=== PATIENT | male | born 1955 | race Caucasian/White ===

== ENCOUNTER 2019-09-23 08:46 | Inpatient (IN) | payer OTHER ==
[2019-09-23] VITALS (13 sets, daily range): BP systolic 101–130
[~2019-09-23] VITALS: Ht 170.2 cm; Wt 129.7 kg
[~2019-09-23 08:46] MED LIST: ALBU2.5V7 INH; ALBU8.5H8 INH; ALLO100T PO; ALPR0.25 PO; CITA40TA11 PO; FURO40TA5 PO; GABA600T PO; LEVO25TA11 PO; LOSA25TA3 PO; NPH,100V SUBCUT; OXYC-133 PO; SSNOVOLOG SUBCUT; TAMS-11 PO; TRAZ-219 PO; ZOLP10TA2 PO; [UNRECOGNIZED DRUG - CODE] PO
[2019-09-23] MEDS ORDERED: NACL 0.9% 1,000 ML IV ONE (08:54)
[2019-09-23] MEDS ORDERED: NS 1000 ML IV.SOLN IV ONE (09:00)
[2019-09-23 09:18] LABS: BASOPHILS % (AUTO) 0.2 % (0.0-2.0); HEMATOCRIT 39.3 % (36-54); HEMOGLOBIN 12.8 g/dL (14.0-18.0); LYMPHOCYTES # (AUTO) 0.3 K/uL (1.0-5.5); LYMPHOCYTES % (AUTO) 1.6 % (20.5-51.5); MEAN CORPUSCULAR HEMOGLOBIN 29 pg (27-31); MEAN CORPUSCULAR HGB CONC 33 % (32-36); MEAN CORPUSCULAR VOLUME 91 fL (79.0-98.0); MONOCYTES % (AUTO) 4.5 % (1.7-9.3); NEUTROPHILS # (AUTO) 20.1 K/uL (1.8-7.7); NEUTROPHILS % (AUTO) 93.7 % (40.0-70.0); PLATELET COUNT (AUTO) 199 K/uL (130-430); RED BLOOD CELL COUNT(AUTO) 4.33 MIL/uL (4.2-6.2); RED CELL DISTRIBUTION WIDTH 17.1 % (9.0-15.0); WHITE BLOOD COUNT (AUTO) 21.5 K/uL (4.8-10.8)
[2019-09-23] MEDS ORDERED: ALBUTEROL SULFATE 0.083% 2.5 MG/3 ML VIAL.NEB INH ONE (09:30)
[2019-09-23] MEDS ORDERED: IPRATROPIUM BROM 0.5 MG/2.5 ML VIAL.NEB (ATROVENT) INH ONE (09:30)
[2019-09-23] MEDS ORDERED: methylPREDNISolone SOD SUCC/PF 62.5 MG/ML VIAL IVP ONE (09:30)
[2019-09-23 09:32] LABS: ANION GAP 9 (5-15); CALCIUM 7.2 mg/dL (8.4-11.0); CHLORIDE 97 mmol/L (98-107); CREATININE 3.55 mg/dL (0.55-1.30); GLUCOSE 251 mg/dL (70-99); POTASSIUM 4.9 mmol/L (3.5-5.1); SODIUM SERUM 134 mmol/L (136-145); UREA NITROGEN, BLOOD 52 mg/dL (8-21)
[2019-09-23 09:34] LABS: INR 1.1 (0.80-1.20)
[2019-09-23 09:35] LABS: GFR AFRICAN AMERICAN 22 mL/min (>90)
[2019-09-23 09:38] LABS: ALANINE AMINOTRANSFERASE 60 U/L (12-78); ALBUMIN 3.2 g/dL (3.4-4.8); AMYLASE 585 U/L (0-100); ASPARTATE AMINOTRANSFERASE 58 U/L (10-37); LIPASE 98 U/L (73-393); TOTAL BILIRUBIN 2.8 mg/dL (0.0-1.0)
[2019-09-23 09:40] LABS: ALCOHOL, BLOOD < 3 mg/dL (<10)
[2019-09-23] MEDS ORDERED: VANCOMYCIN HCL 750 MG in NS 250 ML IV ONE (10:15)
[2019-09-23] MEDS ORDERED: PIPERACILLIN/TAZO 4.5 GM in NS 100 ML IV ONE (10:15)
[2019-09-23] MEDS ORDERED: PIPERACILLIN/TAZOBACTAM 4.5 GM/VIAL (ZOSYN) IV ONE (10:29)
[2019-09-23] MEDS ORDERED: VANCOMYCIN HCL 1000 MG/VIAL IV ONE (10:29)
[2019-09-23] MEDS ORDERED: LACTULOSE 20 GM/30 ML UDC PO ONE (10:30)
[2019-09-23] MEDS ORDERED: MORP30TA PO (11:22)
[2019-09-23 11:26] LABS: BILIRUBIN,URINE NEGATIVE (NEGATIVE); COLOR,URINE YELLOW (YELLOW); GLUCOSE,URINE NEGATIVE (NEGATIVE); KETONES,URINE NEGATIVE (NEGATIVE); LEUKOCYTE ESTERASE ,URINE NEGATIVE (NEGATIVE); NITRITE, URINE NEGATIVE (NEGATIVE); PH,URINE 5.5 (5.0-8.0); PROTEIN URINE NEGATIVE (NEGATIVE); UROBILINOGEN,URINE 0.2 (0.2-1.0)
[2019-09-23 11:29] LABS: BLOOD, URINE TRACE (NEGATIVE); CLARITY/URINE SLIGHTLY HAZY (CLEAR)
[2019-09-23 11:48] LABS: BACTERIA,URINE FEW /HPF (None Seen); MUCUS,URINE 1+ /LPF (None Seen); RBC,URINE 0-3 /HPF (0-3); WBC,URINE NONE SEEN /HPF (0-3)
[2019-09-23 12:18] LABS: BARBITURATE, URINE NEGATIVE (NEG <=200); BENZODIAZEPINE, URINE POSITIVE (NEG <=150); CANNABINOID, URINE NEGATIVE (NEG <=50); COCAINE, URINE NEGATIVE (NEG <=150); METHAMPHETAMINES SCREEN,URINE NEGATIVE (NEG <=500); OPIATE, URINE POSITIVE (NEG <=100); PHENCYCLIDINE SCREEN,URINE NEGATIVE (NEG <=25); URINE AMPHETAMINE NEGATIVE (NEG <=500); URINE METHADONE NEGATIVE (NEG <=200); URINE OXYCODONE SCREEN POSITIVE (NEG <=100); URINE PROPOXYPHENE SCREEN NEGATIVE (NEG <=300)
[2019-09-23 12:19] LABS: UR TRICYCLIC ANTIDEPRESSANTS NEGATIVE (NEG <=300)
[2019-09-23] MEDS: D5/0.45 NS 1,000 ML IV SCH ×2 (13:22→21:08)
[2019-09-23] MEDS ORDERED: FUROSEMIDE 40 MG/4 ML VIAL IVP ONE (14:45)
[2019-09-23] MEDS ORDERED: NALOXONE HCL 0.4 MG/ML AMP (NARCAN) IVP ONE (16:00)
[2019-09-23] MEDS ORDERED: HEPARIN SODIUM,PORCINE 5000 UNITS/ML VIAL SUBCUT ONE ×2 (21:00)
[2019-09-23] MEDS ORDERED: HEPARIN SODIUM,PORCINE 5000 UNITS/ML VIAL ONE (21:05)
[2019-09-24] VITALS (24 sets, daily range): BP systolic 98–143
[2019-09-24] MEDS ORDERED: LORazepam 2 MG/ML VIAL IVP PRN
[2019-09-24] MEDS ORDERED: ALBUTEROL SULFATE 0.083% 2.5 MG/3 ML VIAL.NEB INH PRN
[2019-09-24] MEDS ORDERED: MORPHINE 4 MG/ML INJ. SYRINGE IVP PRN
[2019-09-24] MEDS: INSULIN REGULAR, HUMAN 100 UNITS/ML, 10 ML VIAL (humuLIN R) SUBCUT PRN ×5 (01:30→23:33)
[2019-09-24 06:10] LABS: BASOPHILS % (AUTO) 0.1 % (0.0-2.0); HEMATOCRIT 35.5 % (36-54); HEMOGLOBIN 11.6 g/dL (14.0-18.0); LYMPHOCYTES # (AUTO) 0.6 K/uL (1.0-5.5); LYMPHOCYTES % (AUTO) 3.3 % (20.5-51.5); MEAN CORPUSCULAR HEMOGLOBIN 29 pg (27-31); MEAN CORPUSCULAR HGB CONC 33 % (32-36); MEAN CORPUSCULAR VOLUME 91 fL (79.0-98.0); MONOCYTES # (AUTO) 0.5 K/uL (0.0-1.0); MONOCYTES % (AUTO) 3.2 % (1.7-9.3); NEUTROPHILS # (AUTO) 15.7 K/uL (1.8-7.7); NEUTROPHILS % (AUTO) 93.4 % (40.0-70.0); PLATELET COUNT (AUTO) 163 K/uL (130-430); RED BLOOD CELL COUNT(AUTO) 3.93 MIL/uL (4.2-6.2); RED CELL DISTRIBUTION WIDTH 17.1 % (9.0-15.0); WHITE BLOOD COUNT (AUTO) 16.9 K/uL (4.8-10.8)
[2019-09-24 06:20] LABS: ALBUMIN 2.7 g/dL (3.4-4.8); CALCIUM 7.5 mg/dL (8.4-11.0); CREATININE 1.72 mg/dL (0.55-1.30); PHOSPHORUS 2.9 mg/dL (2.7-4.5); POTASSIUM 3.3 mmol/L (3.5-5.1)
[2019-09-24] MEDS: D5/0.45 NS 1,000 ML IV SCH ×2 (06:35→18:02)
[2019-09-24] MEDS: INSULIN NPH 100 UNITS/ML 10 ML VIAL SUBCUT SCH ×3 (06:53→21:05)
[2019-09-24 07:13] LABS: ERYTHROCYTE SEDIMENTATION RATE 38 MM/HR (0-15)
[2019-09-24 07:18] LABS: C-REACTIVE PROTEIN QUANT 19.7 mg/dL (0-0.5)
[2019-09-24] MEDS ORDERED: PIPERACILLIN/TAZO 3.375/DEX-IS 50 ML IV ONE (10:30)
[2019-09-24] MEDS: PIPERACILLIN/TAZO 3.375/DEX-IS 50 ML IV SCH ×2 (18:03→23:13)
[2019-09-25] VITALS (19 sets, daily range): BP systolic 113–164
[2019-09-25] MEDS: ONDANSETRON HCL 4 MG/2 ML VIAL IVP PRN ×2 (00:21→08:37)
[2019-09-25] MEDS: PIPERACILLIN/TAZO 3.375/DEX-IS 50 ML IV SCH ×3 (05:51→17:18)
[2019-09-25 06:13] LABS: BASOPHILS % (AUTO) 0.2 % (0.0-2.0); EOSINOPHILS % (AUTO) 0.4 % (0.0-4.0); HEMATOCRIT 34.3 % (36-54); HEMOGLOBIN 11.3 g/dL (14.0-18.0); LYMPHOCYTES # (AUTO) 1.3 K/uL (1.0-5.5); LYMPHOCYTES % (AUTO) 10.1 % (20.5-51.5); MEAN CORPUSCULAR HEMOGLOBIN 29 pg (27-31); MEAN CORPUSCULAR HGB CONC 33 % (32-36); MONOCYTES # (AUTO) 0.8 K/uL (0.0-1.0); MONOCYTES % (AUTO) 5.9 % (1.7-9.3); NEUTROPHILS # (AUTO) 10.7 K/uL (1.8-7.7); NEUTROPHILS % (AUTO) 83.4 % (40.0-70.0); PLATELET COUNT (AUTO) 206 K/uL (130-430); RED BLOOD CELL COUNT(AUTO) 3.85 MIL/uL (4.2-6.2); RED CELL DISTRIBUTION WIDTH 17.4 % (9.0-15.0); WHITE BLOOD COUNT (AUTO) 12.8 K/uL (4.8-10.8)
[2019-09-25 06:19] LABS: MEAN CORPUSCULAR VOLUME 89 fL (79.0-98.0)
[2019-09-25 06:39] LABS: ALBUMIN 2.7 g/dL (3.4-4.8); CALCIUM 8.3 mg/dL (8.4-11.0); CREATININE 1.11 mg/dL (0.55-1.30); TOTAL BILIRUBIN 0.8 mg/dL (0.0-1.0)
[2019-09-25] MEDS: INSULIN NPH 100 UNITS/ML 10 ML VIAL SUBCUT SCH ×3 (07:00→21:43)
[2019-09-25 07:12] LABS: POTASSIUM 2.9 mmol/L (3.5-5.1)
[2019-09-25 08:07] LABS: HEPATITIS A AB, IgM Negative (Negative); HEPATITIS B CORE AB, IgM Negative (Negative); HEPATITIS B SURFACE AG Negative (Negative)
[2019-09-25] MEDS: D5/0.45 NS 1,000 ML IV SCH (08:37)
[2019-09-25] MEDS ORDERED: POTASSIUM CHLORIDE 40 MEQ in NS 250 ML IV ONE (09:45)
[2019-09-25] MEDS: 0.45% NACL 1,000 ML IV SCH (10:13)
[2019-09-25] MEDS: HYDROcodone/ACETAMIN 7.5-325 MG TAB PO PRN ×2 (10:14→22:28)
[2019-09-25] MEDS: LORazepam 2 MG/ML VIAL IVP PRN (20:08)
[2019-09-26] MEDS: PIPERACILLIN/TAZO 3.375/DEX-IS 50 ML IV SCH ×5 (00:16→23:23)
[2019-09-26] MEDS: INSULIN REGULAR, HUMAN 100 UNITS/ML, 10 ML VIAL (humuLIN R) SUBCUT PRN ×3 (00:23→17:23)
[2019-09-26 00:32] VITALS: BP_SYST 133
[2019-09-26] MEDS: MORPHINE 2 MG/ML INJ. SYRINGE IVP PRN ×5 (02:47→21:10)
[2019-09-26] MEDS: 0.45% NACL 1,000 ML IV SCH (06:06)
[2019-09-26] MEDS: INSULIN NPH 100 UNITS/ML 10 ML VIAL SUBCUT SCH ×3 (07:25→21:16)
[2019-09-26 08:00] VITALS: BP_SYST 124
[2019-09-26 08:18] LABS: BASOPHILS % (AUTO) 0.5 % (0.0-2.0); EOSINOPHILS # (AUTO) 0.1 K/uL (0.0-0.4); EOSINOPHILS % (AUTO) 1.1 % (0.0-4.0); HEMATOCRIT 34.5 % (36-54); HEMOGLOBIN 11.6 g/dL (14.0-18.0); LYMPHOCYTES # (AUTO) 1.4 K/uL (1.0-5.5); LYMPHOCYTES % (AUTO) 14.2 % (20.5-51.5); MEAN CORPUSCULAR HEMOGLOBIN 30 pg (27-31); MEAN CORPUSCULAR HGB CONC 34 % (32-36); MEAN CORPUSCULAR VOLUME 89 fL (79.0-98.0); MONOCYTES # (AUTO) 0.7 K/uL (0.0-1.0); MONOCYTES % (AUTO) 6.8 % (1.7-9.3); NEUTROPHILS # (AUTO) 7.6 K/uL (1.8-7.7); NEUTROPHILS % (AUTO) 77.4 % (40.0-70.0); PLATELET COUNT (AUTO) 191 K/uL (130-430); RED BLOOD CELL COUNT(AUTO) 3.89 MIL/uL (4.2-6.2); RED CELL DISTRIBUTION WIDTH 17.1 % (9.0-15.0); WHITE BLOOD COUNT (AUTO) 9.9 K/uL (4.8-10.8)
[2019-09-26 09:21] LABS: ALBUMIN 2.6 g/dL (3.4-4.8); CALCIUM 8.5 mg/dL (8.4-11.0); CREATININE 1.02 mg/dL (0.55-1.30); TOTAL BILIRUBIN 0.9 mg/dL (0.0-1.0)
[2019-09-26] MEDS ORDERED: POTASSIUM CHLORIDE 20 MEQ TAB.PRT.SR PO ONE (10:00)
[2019-09-26 12:00] VITALS: BP_SYST 145
[2019-09-26] MEDS: HYDROcodone/ACETAMIN 7.5-325 MG TAB PO PRN ×3 (14:58→23:26)
[2019-09-26 16:55] VITALS: BP_SYST 174
[2019-09-26 20:00] VITALS: BP_SYST 159
[2019-09-27] VITALS: BP_SYST 173
[2019-09-27] MEDS: MORPHINE 2 MG/ML INJ. SYRINGE IVP PRN ×4 (01:26→14:29)
[2019-09-27] MEDS: LORazepam 2 MG/ML VIAL IVP PRN ×2 (02:23→11:29)
[2019-09-27] MEDS: INSULIN NPH 100 UNITS/ML 10 ML VIAL SUBCUT SCH (05:55)
[2019-09-27] MEDS: PIPERACILLIN/TAZO 3.375/DEX-IS 50 ML IV SCH ×2 (05:55→11:43)
[2019-09-27 06:30] LABS: BASOPHILS # (AUTO) 0.1 K/uL (0.0-0.2); BASOPHILS % (AUTO) 0.6 % (0.0-2.0); EOSINOPHILS # (AUTO) 0.1 K/uL (0.0-0.4); EOSINOPHILS % (AUTO) 1.2 % (0.0-4.0); HEMATOCRIT 37.8 % (36-54); HEMOGLOBIN 12.8 g/dL (14.0-18.0); LYMPHOCYTES # (AUTO) 1.3 K/uL (1.0-5.5); LYMPHOCYTES % (AUTO) 14.4 % (20.5-51.5); MEAN CORPUSCULAR HEMOGLOBIN 30 pg (27-31); MEAN CORPUSCULAR HGB CONC 34 % (32-36); MEAN CORPUSCULAR VOLUME 87 fL (79.0-98.0); MONOCYTES # (AUTO) 0.7 K/uL (0.0-1.0); MONOCYTES % (AUTO) 7.6 % (1.7-9.3); NEUTROPHILS # (AUTO) 7.1 K/uL (1.8-7.7); NEUTROPHILS % (AUTO) 76.2 % (40.0-70.0); PLATELET COUNT (AUTO) 203 K/uL (130-430); RED BLOOD CELL COUNT(AUTO) 4.33 MIL/uL (4.2-6.2); RED CELL DISTRIBUTION WIDTH 17.2 % (9.0-15.0); WHITE BLOOD COUNT (AUTO) 9.3 K/uL (4.8-10.8)
[2019-09-27 07:07] LABS: C-REACTIVE PROTEIN QUANT 1.4 mg/dL (0-0.5); CALCIUM 8.5 mg/dL (8.4-11.0); CREATININE 1.01 mg/dL (0.55-1.30); PHOSPHORUS 3.3 mg/dL (2.7-4.5)
[2019-09-27 08:00] VITALS: BP_SYST 152
[2019-09-27] MEDS: HYDROcodone/ACETAMIN 7.5-325 MG TAB PO PRN (08:10)
[2019-09-27 08:29] LABS: ERYTHROCYTE SEDIMENTATION RATE 25 MM/HR (0-15)
[2019-09-27] MEDS: POTASSIUM CHLORIDE 20 MEQ TAB.PRT.SR PO SCH ×2 (09:09→13:42)
[2019-09-27] MEDS: INSULIN REGULAR, HUMAN 100 UNITS/ML, 10 ML VIAL (humuLIN R) SUBCUT PRN (11:29)
[2019-09-27] MEDS ORDERED: METR500T PO (11:48)
[2019-09-27] MEDS ORDERED: LEVO500T89 PO (11:48)
[2019-09-27 12:52] VITALS: BP_SYST 153
[2019-09-27 13:51] VITALS: BP_SYST 153
== END 2019-09-27 15:20 | disposition home or self-care (01) | DRG 871 ==
LOC: SED 08:46 → SIC 11:16 → STU 09-25 15:00
PROVIDERS: ADMIT Internal Medicine Hospice and Palliative Medicine; ATTEND Internal Medicine Hospice and Palliative Medicine
PROC: 5A09357 Assistance with Respiratory Ventilation, Less than 24 Consecutive Hours, Continuous Positive Airway Pressure (ICD-10-PCS; principal; 2019-09-23)
PROC: 02HV33Z Insertion of Infusion Device into Superior Vena Cava, Percutaneous Approach (ICD-10-PCS; 2019-09-23)
PROC: B548ZZA Ultrasonography of Superior Vena Cava, Guidance (ICD-10-PCS; 2019-09-23)
PROC: 5A09357 Assistance with Respiratory Ventilation, Less than 24 Consecutive Hours, Continuous Positive Airway Pressure (ICD-10-PCS; 2019-09-24)
DX: A41.9 Sepsis, unspecified organism (principal); J69.0 Pneumonitis due to inhalation of food and vomit; J96.21 Acute and chronic respiratory failure with hypoxia; E43 Unspecified severe protein-calorie malnutrition; E87.1 Hypo-osmolality and hyponatremia; N17.9 Acute kidney failure, unspecified; N18.5 Chronic kidney disease, stage 5; G93.40 Encephalopathy, unspecified; F11.20 Opioid dependence, uncomplicated; Z68.41 Body mass index [BMI] 40.0-44.9, adult; D64.9 Anemia, unspecified; E11.65 Type 2 diabetes mellitus with hyperglycemia; E87.6 Hypokalemia; F43.10 Post-traumatic stress disorder, unspecified; G47.33 Obstructive sleep apnea (adult) (pediatric); G89.4 Chronic pain syndrome; I50.9 Heart failure, unspecified; J44.9 Chronic obstructive pulmonary disease, unspecified; K21.9 Gastro-esophageal reflux disease without esophagitis; M10.9 Gout, unspecified; M16.0 Bilateral primary osteoarthritis of hip; Z96.643 Presence of artificial hip joint, bilateral; E66.9 Obesity, unspecified; Z99.81 Dependence on supplemental oxygen; Z88.8 Allergy status to other drugs, medicaments and biological substances; Z79.01 Long term (current) use of anticoagulants; Z79.4 Long term (current) use of insulin; Z79.899 Other long term (current) drug therapy; Z83.3 Family history of diabetes mellitus; Z82.5 Family history of asthma and other chronic lower respiratory diseases; Z83.6 Family history of other diseases of the respiratory system; Z82.49 Family history of ischemic heart disease and other diseases of the circulatory system
CPT/HCPCS: 36415; 36600; 43753; 70450-TC; 71045; 80048; 80053; 80074; 80307; 81000-TC; 82140-TC; 82150-TC; 82803-TC; 82962; 83605; 83690-TC; 83735-TC; 83880; 84100-TC; 84484; 85025; 85610-TC; 85651-TC; 85730-TC; 86140; 87040-TC; 87081; 90935; 93005; 94640; 94660; 94760; 96365; 96368; 96375; 99291; 99292; G0378; G0481; G0482; J1644; J1815; J2060; J2270; J2310; J2405; J2543; J2930; J3370; J3480; J7030; J7050; J7613

== ENCOUNTER 2019-10-28 14:14 | Inpatient (IN) | payer OTHER ==
[~2019-10-28] VITALS: Ht 170.2 cm; Wt 126.6 kg
[2019-10-28] VITALS (8 sets, daily range): BP systolic 91–113
[~2019-10-28 14:14] MED LIST changes: +LEVO500T89 PO; +METR500T PO; +MORP30TA PO
--- NOTE | 2019-10-28 14:29 | NUR ---
Placed in room 6 . Placed on groundwater monitoring technician, blood pressure machine and pulse oximeter. To gown for exam. Side rails up. Report given to JUAN Mcgee.
--- NOTE | 2019-10-28 14:35 | NUR ---
PT CAME TO ER AFTER TAKING TOO MUCH MORPHINE AT HOME TOTALING 60MG LAST NIGHT. PT IS CURRENTLY AROUSABLE TO VERBAL STIMULI, IN SOME RESPIRATORY DISTRESS, AO2-3.
--- NOTE | 2019-10-28 14:40 | NUR ---
ER at bedside examining patient.
--- NOTE | 2019-10-28 14:48 | NUR ---
mMedication reconciliation completed with information provided by Medication list given to staff by patients family. Any prior medication reconciliation on file was reviewed and corrected.
[2019-10-28] MEDS ORDERED: NACL 0.9% 1,000 ML IV ONE (14:51)
[2019-10-28] MEDS ORDERED: NS 1000 ML IV.SOLN IV ONE ×2 (15:00→16:00)
--- NOTE | 2019-10-28 15:02 | NUR ---
Patient found to have snoring respirations. RT called, at bedside for placement of Bipap. Patient has IV line established, blood drawn from site. Verbal orders received from Dr. Lainez to give 0.8mg of Narcan IVP.
[2019-10-28] MEDS ORDERED: NALOXONE HCL 0.4 MG/ML AMP (NARCAN) ONE (15:08)
--- NOTE | 2019-10-28 15:13 | NUR ---
Patient ripped off BiPap mask, began vomiting over siderail of bed. Orders received from Dr. Lainez for 8mg zofran to be given IVP. Given. Patient appears more calm after administration of medication.
[2019-10-28] MEDS ORDERED: ONDANSETRON HCL 4 MG/2 ML VIAL IVP ONE (15:15)
[2019-10-28] MEDS ORDERED: NALOXONE HCL 0.4 MG/ML AMP (NARCAN) IVP ONE (15:15)
[2019-10-28 15:26] LABS: HEMOGLOBIN 12.9 g/dL (14.0-18.0); MEAN CORPUSCULAR HEMOGLOBIN 29 pg (27-31); MEAN CORPUSCULAR HGB CONC 31 % (32-36); MEAN CORPUSCULAR VOLUME 93 fL (79.0-98.0); PLATELET COUNT (AUTO) 261 K/uL (130-430); RED BLOOD CELL COUNT(AUTO) 4.42 MIL/uL (4.2-6.2); RED CELL DISTRIBUTION WIDTH 17.8 % (9.0-15.0); WHITE BLOOD COUNT (AUTO) 28.7 K/uL (4.8-10.8)
[2019-10-28] MEDS ORDERED: ONDANSETRON HCL 4 MG/2 ML VIAL ONE (15:26)
--- NOTE | 2019-10-28 15:31 | NUR ---
PT CLEANED UP AFTER VOMITING EPISODE, SHEETS AND CLOTHES CHANGED, XRAY AT BEDSIDE TO BE COMPLETED, RT CALLED TO REPLACE BIPAP.
[2019-10-28] MEDS ORDERED: ALBUTEROL SULFATE 0.083% 2.5 MG/3 ML VIAL.NEB INH ONE (16:00)
[2019-10-28] MEDS ORDERED: methylPREDNISolone SOD SUCC/PF 62.5 MG/ML VIAL IVP ONE (16:00)
[2019-10-28] MEDS ORDERED: IPRATROPIUM BROM 0.5 MG/2.5 ML VIAL.NEB (ATROVENT) INH ONE (16:00)
--- NOTE | 2019-10-28 16:45 | NUR ---
Patient arrived back to room from CT scan. Patient resumed on monitor. Patient escorted with aerospace physiological technician and RN. RT temporarily removed BiPap and placed patient on 15L NRB for CT and transport to radiology. Patient tolerated exam well. Patients called back to room for comfort of patient.
[2019-10-28 16:49] LABS: BAND % (MANUAL) 35 % (0-6); BASOPHILS % (MANUAL) 0 % (0-2); EOSINOPHILS % (MANUAL) 0 % (0-7); LYMPHOCYTES % (MANUAL) 1 % (20-46); MONOCYTES % (MANUAL) 5 % (0-11)
[2019-10-28 17:01] LABS: ANION GAP 9 (5-15); CALCIUM 7.1 mg/dL (8.4-11.0); CHLORIDE 96 mmol/L (98-107); CREATININE 3.56 mg/dL (0.55-1.30); GLUCOSE 270 mg/dL (70-99); INR 1.1 (0.80-1.20); PROTHROMBIN TIME 11.4 SECS (9.5-12.5); SODIUM SERUM 133 mmol/L (136-145); UREA NITROGEN, BLOOD 55 mg/dL (8-21)
[2019-10-28 17:13] LABS: GFR AFRICAN AMERICAN 22 mL/min (>90); POTASSIUM 7.1 mmol/L (3.5-5.1)
[2019-10-28 17:26] LABS: TOTAL BILIRUBIN 2.1 mg/dL (0.0-1.0)
[2019-10-28 17:27] LABS: ALANINE AMINOTRANSFERASE 26 U/L (12-78); ALBUMIN 3.3 g/dL (3.4-4.8); AMYLASE 518 U/L (0-100); ASPARTATE AMINOTRANSFERASE 47 U/L (10-37); LIPASE 90 U/L (73-393)
[2019-10-28 17:28] LABS: ALCOHOL, BLOOD < 3 mg/dL (<10)
[2019-10-28] MEDS ORDERED: SODIUM BICARBONATE 8.4% JECT 50 MEQ/50 ML SYRINGE IVP ONE (17:30)
[2019-10-28] MEDS ORDERED: INSULIN REGULAR, HUMAN 10 UNITS/0.1 ML INJ IVP ONE (17:30)
[2019-10-28] MEDS ORDERED: CALCIUM GLUCONATE 1 GM/10 ML VIAL IVP ONE (17:30)
[2019-10-28] MEDS ORDERED: DEXTROSE 50% JECT 50 ML DISP.SYRIN IVP ONE (17:30)
[2019-10-28] MEDS ORDERED: SODIUM POLYSTYRENE SULFONATE 15 GM/60 ML UDBTL PO ONE ×2 (17:30→22:00)
[2019-10-28 18:01] LABS: BILIRUBIN,URINE 1+ (NEGATIVE); BLOOD, URINE 1+ (NEGATIVE); COLOR,URINE YELLOW (YELLOW); GLUCOSE,URINE NEGATIVE (NEGATIVE); KETONES,URINE TRACE (NEGATIVE); LEUKOCYTE ESTERASE ,URINE NEGATIVE (NEGATIVE); NITRITE, URINE NEGATIVE (NEGATIVE); PROTEIN URINE TRACE (NEGATIVE); UROBILINOGEN,URINE 0.2 (0.2-1.0)
[2019-10-28 18:24] LABS: CLARITY/URINE SLIGHTLY HAZY (CLEAR)
[2019-10-28 18:30] LABS: OPIATE, URINE POSITIVE (NEG <=100)
[2019-10-28 18:31] LABS: BARBITURATE, URINE NEGATIVE (NEG <=200); BENZODIAZEPINE, URINE POSITIVE (NEG <=150); CANNABINOID, URINE NEGATIVE (NEG <=50); COCAINE, URINE NEGATIVE (NEG <=150); METHAMPHETAMINES SCREEN,URINE NEGATIVE (NEG <=500); URINE AMPHETAMINE NEGATIVE (NEG <=500); URINE METHADONE NEGATIVE (NEG <=200); URINE OXYCODONE SCREEN POSITIVE (NEG <=100)
[2019-10-28 18:32] LABS: PHENCYCLIDINE SCREEN,URINE NEGATIVE (NEG <=25); UR TRICYCLIC ANTIDEPRESSANTS NEGATIVE (NEG <=300); URINE PROPOXYPHENE SCREEN NEGATIVE (NEG <=300)
[2019-10-28 18:40] LABS: CKMB RELATIVE INDEX 3.2 (0.0-2.9); CREATINE KINASE MB 49.4 ng/mL (0-3.6)
[2019-10-28 18:41] LABS: RBC,URINE 0-3 /HPF (0-3); WBC,URINE NONE SEEN /HPF (0-3)
[2019-10-28 18:42] LABS: BACTERIA,URINE FEW /HPF (None Seen)
--- NOTE | 2019-10-28 18:57 | NUR ---
Patient will be admitted to care of DR SPENCER. Admitted to ICU unit. Will go to room ICU7. Belongings list completed. Complete and up to date summary report printed. SBAR report to be given at bedside with opportunity for questions. REPORT GIVEN TO JULITO AT BEDSIDE.
--- NOTE | 2019-10-28 19:38 | NUR ---
LATE ENTRY MEDICATIONS DID NOT SCAN IN COMPUTER AT BEDSIDE. CHART REVIEW AT [facility] UPON TRANSFER SHOWED FAILURE TO SAVE SCAN. CORRECTED FOR CONTINUITY OF CARE.
--- NOTE | 2019-10-28 19:40 | NUR ---
ICU ADMIT Pt is lethargic, arousable to tactile stimulation. O2 via BIPAP. IV to left and right forearm. No belongings. VSS. Will continue to monitor.
[2019-10-28] MEDS ORDERED: NACL 0.9% 1,000 ML IV SCH (20:15)
--- NOTE | 2019-10-28 20:30 | NUR ---
DR. WEBER HERE AT BEDSIDE, NEW ORDERS PUT IN.
--- NOTE | 2019-10-28 20:30 | NUR ---
CONSULT - DR. DELA CRUZ Reason for Consultation: SEPSIS Person Who was Notified: BENI Consulting Physician: DR. DELA CRUZ Continuous Dryout Operator Helper Specialty: ID Ordering Physician: DR. Holley ROSALES
[2019-10-28] MEDS ORDERED: ONDANSETRON HCL 4 MG/2 ML VIAL IM PRN (21:00)
--- NOTE | 2019-10-28 21:00 | NUR ---
DR. COPPOLA AT BEDSIDE, NEW ORDERS GIVEN.
[2019-10-28 21:02] LABS: CALCIUM 7.3 mg/dL (8.4-11.0); CREATININE 3.51 mg/dL (0.55-1.30)
[2019-10-28] MEDS ORDERED: PIPERACILLIN/TAZOBACTAM 2.25 GM VIAL IV ONE (21:17)
[2019-10-28 21:21] LABS: POTASSIUM 6.3 mmol/L (3.5-5.1)
[2019-10-28] MEDS: PIPERACILLIN/TAZO 2.25G/DEX-IS 50 ML IV SCH (21:38)
[2019-10-28] MEDS ORDERED: MORPHINE 2 MG/ML INJ. SYRINGE IVP PRN (21:45)
[2019-10-28] MEDS ORDERED: INSULIN NPH 100 UNITS/ML 10 ML VIAL SUBCUT PRN (21:45)
[2019-10-28] MEDS ORDERED: D5/0.45 NS 1,000 ML IV SCH (22:30)
[2019-10-28] MEDS: methylPREDNISolone SOD SUCC/PF 62.5 MG/ML VIAL IVP SCH (22:32)
[2019-10-28] MEDS ORDERED: NOREPINEPHRINE BITARTRATE 4 MG in NS 246 ML IV PRN (23:15)
[2019-10-28] MEDS: INSULIN REGULAR, HUMAN 100 UNITS/ML, 10 ML VIAL (humuLIN R) SUBCUT PRN (23:26)
[2019-10-29] VITALS (20 sets, daily range): BP systolic 93–137
[2019-10-29] MEDS: IPRATROPIUM/ALBUTEROL SULFATE 3 ML AMPUL.NEB (DUONEB) INH SCH ×4 (00:35→19:35)
[2019-10-29] MEDS ORDERED: NOREPINEPHRINE 4 MG/4 ML VIAL IV ONE (00:42)
[2019-10-29] MEDS: PIPERACILLIN/TAZO 2.25G/DEX-IS 50 ML IV SCH ×4 (02:31→22:26)
--- NOTE | 2019-10-29 05:30 | NUR ---
Assisted patient with urinal, 650 output of yellow urine. Pt tolerated care well. Will continue to monitor.
[2019-10-29] MEDS: methylPREDNISolone SOD SUCC/PF 62.5 MG/ML VIAL IVP SCH (06:14)
[2019-10-29] MEDS: INSULIN REGULAR, HUMAN 100 UNITS/ML, 10 ML VIAL (humuLIN R) SUBCUT PRN ×4 (06:16→18:14)
[2019-10-29 06:29] LABS: BASOPHILS % (AUTO) 0.1 % (0.0-2.0); HEMATOCRIT 39.4 % (36-54); HEMOGLOBIN 12.6 g/dL (14.0-18.0); LYMPHOCYTES # (AUTO) 0.6 K/uL (1.0-5.5); LYMPHOCYTES % (AUTO) 3.2 % (20.5-51.5); MEAN CORPUSCULAR HEMOGLOBIN 30 pg (27-31); MEAN CORPUSCULAR HGB CONC 32 % (32-36); MEAN CORPUSCULAR VOLUME 93 fL (79.0-98.0); MONOCYTES # (AUTO) 0.2 K/uL (0.0-1.0); MONOCYTES % (AUTO) 1.1 % (1.7-9.3); NEUTROPHILS # (AUTO) 17.1 K/uL (1.8-7.7); NEUTROPHILS % (AUTO) 95.6 % (40.0-70.0); PLATELET COUNT (AUTO) 205 K/uL (130-430); RED BLOOD CELL COUNT(AUTO) 4.25 MIL/uL (4.2-6.2); WHITE BLOOD COUNT (AUTO) 17.9 K/uL (4.8-10.8)
--- NOTE | 2019-10-29 06:44 | NUR ---
Nutrition Update Miles Scale 15 noted. Pt admitted for Sepsis Diet: NPO BMI: 43.7 kg/m2 RD to follow per nutrition care standards.
[2019-10-29 06:47] LABS: ALBUMIN 3.1 g/dL (3.4-4.8); CREATININE 3.13 mg/dL (0.55-1.30); TOTAL BILIRUBIN 1.7 mg/dL (0.0-1.0)
[2019-10-29 07:15] LABS: POTASSIUM 6.5 mmol/L (3.5-5.1)
--- NOTE | 2019-10-29 07:15 | NUR ---
Received patient from [facility] shift nurse. Patient in no acute distress.
--- NOTE | 2019-10-29 07:30 | NUR ---
ENDORSEMENT Pt care endorsed to dayshift RN using nursing SBAR.
--- NOTE | 2019-10-29 07:30 | NUR ---
Paged MD Vallecillo regarding potassium.
--- NOTE | 2019-10-29 08:05 | NUR ---
MD Vallecillo made aware via telephone potassium 6.5 and glucose 338, new order to change IV fluids to 1/2 NS at 100 ml an hour, check blood sugar at 1000 and cover per sliding scale order, Kayexalate 60 mg one time, dulcolax tab 10 mg one time. Orders placed.
[2019-10-29] MEDS ORDERED: SODIUM POLYSTYRENE SULFONATE 15 GM/60 ML UDBTL PO ONE (08:15)
[2019-10-29] MEDS ORDERED: BISACODYL 5 MG TABLET.DR (DULCOLAX) PO ONE (08:15)
[2019-10-29] MEDS: SODIUM POLYSTYRENE SULFONATE 15 GM/60 ML UDBTL ONE ×2 (08:28→09:44)
[2019-10-29] MEDS: BISACODYL 5 MG TABLET.DR (DULCOLAX) ONE ×2 (08:29→09:44)
[2019-10-29] MEDS: MORPHINE 4 MG/ML INJ. SYRINGE IVP PRN ×3 (08:30→22:27)
[2019-10-29] MEDS ORDERED: SODIUM POLYSTYRENE SULFONATE 15 GM/60 ML UDBTL ONE (08:51)
[2019-10-29] MEDS: 0.45% NS 1,000 ML IV SCH ×2 (09:16→22:27)
--- NOTE | 2019-10-29 11:05 | NUR ---
Educated patient importance of placing SCDs on and offered x 3, patient refused.
--- NOTE | 2019-10-29 12:05 | NUR ---
Reported to Ruth Ann CUMMINGS, blood sugar 406, no new orders.
--- NOTE | 2019-10-29 13:30 | NUR ---
Paged MD Lewis for diet order, new order renal diet. Orders placed.
[2019-10-29 14:00] LABS: ANION GAP 11 (5-15); CHLORIDE 99 mmol/L (98-107); GLUCOSE 372 mg/dL (70-99); SODIUM SERUM 138 mmol/L (136-145); UREA NITROGEN, BLOOD 61 mg/dL (8-21)
[2019-10-29 14:01] LABS: CREATININE 2.91 mg/dL (0.55-1.30); GFR AFRICAN AMERICAN 28 mL/min (>90)
[2019-10-29] MEDS: AZITHROMYCIN 500 MG in NS 250 ML IV SCH (14:41)
--- NOTE | 2019-10-29 15:18 | NUR ---
Senior Executive Assistant: AIR GUN OPERATOR met with pt. and to conduct a DCPA. AIR GUN OPERATOR introduced self to pt. and . Pt. did not feel well. He was sitting upright, finishing up his lunch. Pt. began responding rudely to AIR GUN OPERATOR and his who was present told pt. / to be nice. 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 AIR GUN OPERATOR spoke up and explained the nature of the visit. During the interview, pt. continued to look as his , Kamilah to step in and speak for him. Kamilah stated , he always defers to her and its hard on her having to make decisions and be medically responsible. She feels this is a lot of pressure on her. Pt. does not want to know about his medical conditions or health concerns. He has been to the hospital numerous times. She is aware of the reasons why he has to be hospitalized. Kamilah stated pt. medicates himself because he is in constant pain. Kamilah stated pt. Dialysis is new to pt and that he refused to have dialysis while here at the hospital. Pt. has an oximeter at home, a concentrator and c-pap and a cane as well. Pt stated he had been Dx. with Depression and PTSD. He served 33 years in the [employer] and has suffered from many injuries while being in the [employer]. feels pt. is self medicated so he does not have to feel any pain. Kamilah added pt. does not want to live in pain so he self medicates. AIR GUN OPERATOR thanked both pt. and and will remain available as needed.
--- NOTE | 2019-10-29 16:20 | NUR ---
Paged MD Lewis regarding possibility of transfer, new order to transfer to tele floor.
--- NOTE | 2019-10-29 17:08 | NUR ---
Patient pulled out IV site on right hand, started new IV site 24 gauge placed on right AC. Site patent.
[2019-10-29] MEDS: methylPREDNISolone SOD SUCC 40 MG/ML VIAL IVP SCH (18:12)
--- NOTE | 2019-10-29 19:20 | NUR ---
Endorsed patient to NOC shift nurse and gave report. Patient in no acute distress. Side rails x 3 up. Call light with in reach.
--- NOTE | 2019-10-29 20:21 | NUR ---
Patient awake alert HOB elevated on 02 NC @ 2 LPM Respirations Regular also unlabored no use of accessory muscles assist encourage position change family also @ the bedside call mcdonald given to patient .
--- NOTE | 2019-10-29 20:52 | NUR ---
Patient REFUSING BUILDING SERVICES TECHNICIAN AT THIS TIME .
[2019-10-29] MEDS: INSULIN NPH 100 UNITS/ML 10 ML VIAL SUBCUT SCH (22:24)
--- NOTE | 2019-10-29 22:54 | NUR ---
ASSIST PATIENT OUT OF BED FOR BSC , STOOL noted loose FALL MEASURES INTACT / MONITOR .
--- NOTE | 2019-10-29 22:59 | NUR ---
Patient Requesting MORPHINE SULFATE for GENERAL PAIN 04/04 .
--- NOTE | 2019-10-29 23:00 | NUR ---
MORPHINE SULFATE 4MG IVP administer for acute GENERAL PAIN 04/04 continue to monitor / .
[2019-10-30] VITALS (7 sets, daily range): BP systolic 113–150
[2019-10-30] MEDS: INSULIN REGULAR, HUMAN 100 UNITS/ML, 10 ML VIAL (humuLIN R) SUBCUT PRN ×4 (00:49→16:34)
[2019-10-30] MEDS: IPRATROPIUM/ALBUTEROL SULFATE 3 ML AMPUL.NEB (DUONEB) INH SCH ×4 (01:01→19:53)
--- NOTE | 2019-10-30 01:17 | NUR ---
Patient transfer to Room 103 B SBAR Report given to RN @ the bedside , orders carried out .
--- NOTE | 2019-10-30 01:20 | NUR ---
A/A/O X4.GROSSLY OBESE.DENIES SOB.O2 SAT ON 2L NC. TELE SHOWED SR.V/S STABLE. AFEBRILE.ORIENTED TO HIS ENVIRONMENT,BED CONTROL & CALL LIGHT;WITHIN REACH.IVF 1/2 NS @ 100 ML/HR INFUSING WELL.
--- NOTE | 2019-10-30 02:00 | NUR ---
OOB TO THE BR IN NO ACUTE DISTRESS & BACK TO BED.
[2019-10-30] MEDS: MORPHINE 4 MG/ML INJ. SYRINGE IVP PRN ×2 (02:28→06:34)
--- NOTE | 2019-10-30 02:28 | NUR ---
MORPHINE 4 MG ADM FOR SEVERE OF HIS BACK & RIGHT ARM.
--- NOTE | 2019-10-30 02:58 | NUR ---
PER PT PAIN STILL PERSIST BUT DECREASE TO SCALE 5/10.
[2019-10-30] MEDS: PIPERACILLIN/TAZO 2.25G/DEX-IS 50 ML IV SCH ×4 (03:12→20:48)
--- NOTE | 2019-10-30 04:00 | NUR ---
ASSISTED OOB TO THE BR & BACK TO BED.
--- NOTE | 2019-10-30 06:00 | NUR ---
FINGER STICK BLD SUGAR 278.REGULAR INSULIN 6 UNITS SUB Q ADM.
[2019-10-30] MEDS: methylPREDNISolone SOD SUCC 40 MG/ML VIAL IVP SCH (06:17)
--- NOTE | 2019-10-30 06:45 | NUR ---
ENDORSED IN NO ACUTE DISTRESS.NO S/S OF HYPO/HYPERGLYCEMIA NOTED. SAFETY MAINTAINED. CALL LIGHT WITHIN REACH.
[2019-10-30 07:05] LABS: BASOPHILS % (AUTO) 0.1 % (0.0-2.0); HEMATOCRIT 34.6 % (36-54); HEMOGLOBIN 11.1 g/dL (14.0-18.0); LYMPHOCYTES # (AUTO) 0.7 K/uL (1.0-5.5); LYMPHOCYTES % (AUTO) 4.7 % (20.5-51.5); MEAN CORPUSCULAR HEMOGLOBIN 29 pg (27-31); MEAN CORPUSCULAR HGB CONC 32 % (32-36); MEAN CORPUSCULAR VOLUME 91 fL (79.0-98.0); MONOCYTES # (AUTO) 0.9 K/uL (0.0-1.0); MONOCYTES % (AUTO) 6.1 % (1.7-9.3); NEUTROPHILS # (AUTO) 12.8 K/uL (1.8-7.7); NEUTROPHILS % (AUTO) 89.1 % (40.0-70.0); PLATELET COUNT (AUTO) 205 K/uL (130-430); RED BLOOD CELL COUNT(AUTO) 3.78 MIL/uL (4.2-6.2); RED CELL DISTRIBUTION WIDTH 18.1 % (9.0-15.0); WHITE BLOOD COUNT (AUTO) 14.3 K/uL (4.8-10.8)
--- NOTE | 2019-10-30 07:40 | NUR ---
AM rounds: Received sitting on the edge of the bed for breakfast with O2 2 li/min via nasal cannula. Denies shortness of breath. Call light within reach.
[2019-10-30 08:48] LABS: ALBUMIN 2.7 g/dL (3.4-4.8); CALCIUM 7.3 mg/dL (8.4-11.0); CREATININE 1.61 mg/dL (0.55-1.30); PHOSPHORUS 2.4 mg/dL (2.7-4.5); POTASSIUM 3.2 mmol/L (3.5-5.1); TOTAL BILIRUBIN 0.6 mg/dL (0.0-1.0)
--- NOTE | 2019-10-30 10:00 | NUR ---
Rounds: Patient is asleep. No respiratory distress noted.
[2019-10-30 10:32] LABS: ERYTHROCYTE SEDIMENTATION RATE 60 MM/HR (0-15)
[2019-10-30] MEDS: AZITHROMYCIN 500 MG in NS 250 ML IV SCH (11:20)
[2019-10-30] MEDS ORDERED: POTASSIUM CHLORIDE 20 MEQ TAB.PRT.SR PO ONE (11:30)
[2019-10-30] MEDS: ONDANSETRON HCL 4 MG/2 ML VIAL IVP PRN ×2 (12:43→20:00)
--- NOTE | 2019-10-30 12:50 | NUR ---
Nausea: Medicated with zofran for nausea.
[2019-10-30] MEDS: 0.45% NS 1,000 ML IV SCH (13:33)
--- NOTE | 2019-10-30 14:21 | NUR ---
Dietitian Recommendations * [facility] [place], [facility] Please refer to Nutrition Assessment for details. Addendum: 10/30/19 at [address] Amended: Links added.
--- NOTE | 2019-10-30 15:34 | NUR ---
ROUNDS: Ambulated to the bathroom with steady gait.
[2019-10-30 15:53] LABS: C-REACTIVE PROTEIN QUANT 10.9 mg/dL (0-0.5)
[2019-10-30] MEDS: LORazepam 2 MG/ML VIAL IVP PRN ×2 (16:40→23:20)
--- NOTE | 2019-10-30 16:50 | NUR ---
Social Service Note DIPLOMATIC COURIER was asked by Oralia MARTINEZ to discuss advanced directive with patient's . Met with patient and at bedside. Discussed that a legal advanced directive was in the chart. Discussed that Dr Layton wanted patient and to be clear about patient's wishes. Patient and discussed the code and interventions in detail. It seems patient would like most interventions done to save his life, but not intubation. He stated clearly he does not want to be intubated. Patient would like to be kept as comfortable as possible, even if it were to shorten his life. Patient's is clear about, and agrees with, these wishes. A copy of the new, more detailed, Advanced Directive was placed in the chart. It is signed by patient but not witnesses. Witnesses are unnecessary as the existing advanced directive is legal and assigns the as decision maker. Gave the original new advanced directive to and told her she could get it signed by witnesses at a later date. Discussed with Oralia MARTINEZ that patient would thus have a modified code status. Provided my card and will remain available.
--- NOTE | 2019-10-30 18:47 | NUR ---
End of shift: Needs attended. No change in assessment.
--- NOTE | 2019-10-30 20:00 | NUR ---
A/A/O X 4.IVF 1/2 NS @100 ML/HR INFUSING WELL. PER FAMILY HAD EMESIS OF UNDIGESTED FOOD,MODERATE IN AMOUNT. ZOFRAN IV ADM. WILL CON'T TO MONITOR .
--- NOTE | 2019-10-30 21:00 | NUR ---
DUE MEDS ADM.
[2019-10-30] MEDS: INSULIN NPH 100 UNITS/ML 10 ML VIAL SUBCUT SCH (21:31)
--- NOTE | 2019-10-30 23:20 | NUR ---
ATIVAN IV ADM PER PT'S REQUEST."CLAIMED SO ANXIOUS."
[2019-10-31] VITALS (7 sets, daily range): BP systolic 118–156
--- NOTE | 2019-10-31 | NUR ---
RESTING COMFORTABLY POST ATIVAN BUT EASILY AROUSABLE.FINGER STICK BLD SUGAR 297.REGULAR INSULIN 6 UNITS SUB Q ADM.SNACKS GIVEN.
[2019-10-31] MEDS: INSULIN REGULAR, HUMAN 100 UNITS/ML, 10 ML VIAL (humuLIN R) SUBCUT PRN ×4 (00:03→23:51)
[2019-10-31] MEDS: 0.45% NS 1,000 ML IV SCH (00:09)
[2019-10-31] MEDS: IPRATROPIUM/ALBUTEROL SULFATE 3 ML AMPUL.NEB (DUONEB) INH SCH ×4 (01:00→19:00)
--- NOTE | 2019-10-31 02:00 | NUR ---
RESTING COMFORTABLY IN NO ACUTE DISTRESS.
[2019-10-31] MEDS: MORPHINE 4 MG/ML INJ. SYRINGE IVP PRN ×6 (02:52→23:46)
--- NOTE | 2019-10-31 02:52 | NUR ---
C/O SHARP LOWER BACK PAIN.SCALE 10/10. MORPHINE IV ADM. WILL CON'T TO MONITOR FOR PAIN.
[2019-10-31] MEDS: PIPERACILLIN/TAZO 2.25G/DEX-IS 50 ML IV SCH ×4 (02:53→20:38)
--- NOTE | 2019-10-31 03:22 | NUR ---
ASLEEP. IN NO ACUTE DISTRESS.
--- NOTE | 2019-10-31 04:00 | NUR ---
ASLEEP.TELE SHOWED SR.
--- NOTE | 2019-10-31 06:00 | NUR ---
finger stick bld sugar 134.
[2019-10-31 06:53] LABS: BASOPHILS % (AUTO) 0.1 % (0.0-2.0); HEMATOCRIT 36.8 % (36-54); LYMPHOCYTES # (AUTO) 1.6 K/uL (1.0-5.5); LYMPHOCYTES % (AUTO) 11.3 % (20.5-51.5); MEAN CORPUSCULAR HEMOGLOBIN 30 pg (27-31); MEAN CORPUSCULAR HGB CONC 33 % (32-36); MEAN CORPUSCULAR VOLUME 91 fL (79.0-98.0); MONOCYTES # (AUTO) 0.8 K/uL (0.0-1.0); MONOCYTES % (AUTO) 5.9 % (1.7-9.3); NEUTROPHILS # (AUTO) 11.4 K/uL (1.8-7.7); NEUTROPHILS % (AUTO) 82.7 % (40.0-70.0); PLATELET COUNT (AUTO) 221 K/uL (130-430); RED BLOOD CELL COUNT(AUTO) 4.05 MIL/uL (4.2-6.2); RED CELL DISTRIBUTION WIDTH 17.4 % (9.0-15.0); WHITE BLOOD COUNT (AUTO) 13.8 K/uL (4.8-10.8)
--- NOTE | 2019-10-31 07:06 | NUR ---
ENDORSED IN NO ACUTE DISTRESS.NO S/S OF HYPO/HYPERGLYCEMIA NOTED.SAFETY MAINTAINED.
--- NOTE | 2019-10-31 07:41 | NUR ---
OPENING NOTE Patient sitting at the edge of the bed and eating breakfast. No acute distress. Stated that Morphine helped the pain but still with pain. Skin warm and dry to touch. IV intact to RAC, no redness, no swelling, no drainage. On 1/2NS at 100ml/hr, infusing well. Discussed the safety issue, use call light when needs help, and plan of care, verbally understanding. Safety measure maintained. Bed locked in low position, side rails up. Refused bed alarm, risk and benefit explained, verbally understanding. Call light within reached. Will continue to monitor.
[2019-10-31 07:43] LABS: ALBUMIN 2.9 g/dL (3.4-4.8); CALCIUM 8.5 mg/dL (8.4-11.0); CREATININE 1.24 mg/dL (0.55-1.30); PHOSPHORUS 2.7 mg/dL (2.7-4.5); POTASSIUM 3.4 mmol/L (3.5-5.1); TOTAL BILIRUBIN 0.7 mg/dL (0.0-1.0)
[2019-10-31 08:07] LABS: C-REACTIVE PROTEIN QUANT 4.8 mg/dL (0-0.5)
[2019-10-31] MEDS: PREDNISONE 20 MG TABLET PO SCH (08:34)
--- NOTE | 2019-10-31 08:48 | NUR ---
AM SCHEDULE MED GIVEN, TOLERATED WELL.
--- NOTE | 2019-10-31 09:46 | NUR ---
SEEN AND EXAMINED BY MARIA TERESA SOUZA.
--- NOTE | 2019-10-31 10:32 | NUR ---
SEEN AND EXAMINED BY KEI LIGHT. AWAKE THE ABG RESULT FOR THIS MORNING.
--- NOTE | 2019-10-31 10:40 | NUR ---
DC Planning: Per dr. Walker: ordered to do the snf eval. He will speak with dtr as well. Cathy dcp made aware and to process the inquiry. Addendum: 10/31/19 at 1240 by Chris Andino RN >> 1100 am I met with patient, dtr Morgan at bedside to discuss dcp to snf. The pt will need continuation of IV ABX and PT.CM provided brochoures /info, snf of choice given for their consideration: [facility], [facility] , [facility] and preferred snf list. Then after their meeting with pt's spouse/Kamilah, they decided for [facility]. PT and family made aware of the expectations and treatments at snf. The pt agreed with the transfer today if cleared by dr. Walker.
--- NOTE | 2019-10-31 11:11 | NUR ---
MORPHINE GIVEN Patient c/o back pain 10/10, Morphine 4mg IVP given as order. No acute distress. Daughter at bedside. Safety measure maintained. Call light within reached. Continue to monitor.
[2019-10-31 11:12] LABS: ERYTHROCYTE SEDIMENTATION RATE 38 MM/HR (0-15)
[2019-10-31] MEDS ORDERED: POTASSIUM CHLORIDE 20 MEQ TAB.PRT.SR PO ONE (11:30)
[2019-10-31] MEDS: AZITHROMYCIN 500 MG in NS 250 ML IV SCH (11:44)
[2019-10-31] MEDS: 0.45% NACL 1,000 ML IV SCH (11:45)
--- NOTE | 2019-10-31 11:53 | NUR ---
SEEN AND EXAMINED BY CASSIE MORLEY.
--- NOTE | 2019-10-31 11:54 | NUR ---
Discharge Planning: DCP faxed pt referral to [facility] (f [phone] p [phone]) DCP to follow up Addendum: 10/31/19 at 1612 by Cathy Mcduffie DP DCP spoke to Alva at [facility] (f [phone] p [phone]) pt accepted to room 20A, DCP made charge nurse aware. Addendum: 10/31/19 at 1711 by aCthy Mcduffie DP DCP put transportation on [facility] ([phone]) to [facility] (f [phone] p [phone]) pt accepted to room 20A
[2019-10-31] MEDS: LORazepam 2 MG/ML VIAL IVP PRN ×2 (12:03→17:29)
--- NOTE | 2019-10-31 12:04 | NUR ---
ATIVAN GIVEN Patient c/o feeling anxious, Ativan 1mg IVP given as ordered. NO acute distress. Safety measure maintained. Call light within reached. Bed locked in low position, side rails up. Family at bedside. Continue to monitor.
--- NOTE | 2019-10-31 14:42 | NUR ---
ROUND Patient sitting on the edge of the pain. No acute distress. Continue on O2 2L/min via NC. IV intact, IVF infusing well. Family at bedside. Safety measure maintained. Bed locked in low position, side rails up. Call light within reached. Continue to monitor.
--- NOTE | 2019-10-31 17:15 | NUR ---
CALLED MARIA TERESA SOUZA X 2 AND RECEIVED THE CALL BACK REGARDING DISCHARGE Report to Dr. Walker, the patient already got accepted by [facility] with the room available. Per Dr. Walker, keep the patient tonight will discharge tomorrow.
[2019-10-31] MEDS: ONDANSETRON HCL 4 MG/2 ML VIAL IVP PRN (17:33)
--- NOTE | 2019-10-31 18:50 | NUR ---
CLOSING NOTE Patient ambulated in the hallway with IVF. No acute distress. IV intact to RAC, no redness, no swelling, no drainage. On 1/2NS at 100ml/hr, infusing well. PRN pain med given around clock. All needs met. Safety measure maintained. Will endorse to night nurse.
--- NOTE | 2019-10-31 19:40 | NUR ---
ROUNDS PATIENT IN BED, WATCHING TV, NOT IN DISTRESS, VITALS STABLE. CLAIMED TO HAVE GEN. PAIN AT THIS TIME, 8/10 PAIN SCALE.JUST GIVEN PAIN MEDICATION BY A.M. SHIFT NURSE. ASSESSMENT DONE AND DOCUMENTED. SEE FLOWSHEET. NEEDS ATTENDED TO. SAFETY MEASURES IN PLACED. CALL LIGHT PLACED WITHIN REACH.
[2019-10-31 20:06] LABS: LEGIONELLA PNEUMOPHILIA AB <0.91 OD ratio (0.00-0.90)
[2019-10-31] MEDS: INSULIN NPH 100 UNITS/ML 10 ML VIAL SUBCUT SCH (20:41)
[2019-10-31 21:06] LABS: MYCOPLASMA PNEUMONIAE IgM <770 U/mL (0-769)
--- NOTE | 2019-10-31 21:16 | NUR ---
MEDICATION DUE MEDICATIONS GIVEN SCHEDULED, TOLERATED WELL. WILL CONTINUE TO MONITOR.
[2019-11-01] VITALS: BP_SYST 147
--- NOTE | 2019-11-01 00:13 | NUR ---
PATIENT RESTING: Patient resting quietly. No acute distress noted. Vital signs within normal range.
[2019-11-01] MEDS: IPRATROPIUM/ALBUTEROL SULFATE 3 ML AMPUL.NEB (DUONEB) INH SCH ×2 (01:00→07:00)
--- NOTE | 2019-11-01 02:10 | NUR ---
ROUNDS PATIENT ASLEEP, NO SIGNS OF ANY PAIN AND DISCOMFORT NOTED, RESPIRATIONS EVEN AND UNLABORED. WILL CONTINUE TO MONITOR.
[2019-11-01] MEDS: PIPERACILLIN/TAZO 2.25G/DEX-IS 50 ML IV SCH ×2 (03:26→08:28)
--- NOTE | 2019-11-01 04:15 | NUR ---
PATIENT RESTING: Patient resting quietly. No acute distress noted. Vital signs within normal range.
[2019-11-01] MEDS: ACETAMINOPHEN 325 MG TABLET PO PRN ×2 (06:28→11:28)
--- NOTE | 2019-11-01 06:40 | NUR ---
CLOSING NOTES PATIENT RESTING COMFORTABLY IN BED, JUST GIVEN TYLENOL 650 MG PO ORDERED FOR MILD PAIN. ALL NEEDS ATTENDED TO. SAFETY MEASURES MAINTAINED. CALL LIGHT PLACED WITHIN REACH.
[2019-11-01 07:11] LABS: BASOPHILS # (AUTO) 0.1 K/uL (0.0-0.2); BASOPHILS % (AUTO) 0.5 % (0.0-2.0); EOSINOPHILS # (AUTO) 0.2 K/uL (0.0-0.4); EOSINOPHILS % (AUTO) 1.5 % (0.0-4.0); HEMATOCRIT 37.6 % (36-54); HEMOGLOBIN 12.7 g/dL (14.0-18.0); LYMPHOCYTES % (AUTO) 18.4 % (20.5-51.5); MEAN CORPUSCULAR HEMOGLOBIN 30 pg (27-31); MEAN CORPUSCULAR HGB CONC 34 % (32-36); MEAN CORPUSCULAR VOLUME 90 fL (79.0-98.0); MONOCYTES # (AUTO) 0.8 K/uL (0.0-1.0); NEUTROPHILS # (AUTO) 7.6 K/uL (1.8-7.7); NEUTROPHILS % (AUTO) 71.6 % (40.0-70.0); PLATELET COUNT (AUTO) 220 K/uL (130-430); RED CELL DISTRIBUTION WIDTH 17.5 % (9.0-15.0); WHITE BLOOD COUNT (AUTO) 10.6 K/uL (4.8-10.8)
[2019-11-01 07:13] LABS: CALCIUM 8.6 mg/dL (8.4-11.0); CREATININE 1.15 mg/dL (0.55-1.30); POTASSIUM 3.3 mmol/L (3.5-5.1)
--- NOTE | 2019-11-01 07:30 | NUR ---
INITIAL NOTE PT RESTING QUIETLY IN BED. PT ON ROOM AIR, TOLERATING WELL. IVF INFUSING WELL. CALL LIGHT WITHIN REACH, BED IN LOW AND LOCKED POSITION WITH BED ALARM ON.
[2019-11-01] MEDS: PREDNISONE 20 MG TABLET PO SCH (08:28)
[2019-11-01] MEDS: MORPHINE 4 MG/ML INJ. SYRINGE IVP PRN (08:30)
[2019-11-01] MEDS ORDERED: POTASSIUM CHLORIDE 20 MEQ TAB.PRT.SR PO ONE (10:00)
[2019-11-01] MEDS: 0.45% NACL 1,000 ML IV SCH (10:52)
[2019-11-01] MEDS: LORazepam 2 MG/ML VIAL IVP PRN (10:53)
[2019-11-01] MEDS: INSULIN REGULAR, HUMAN 100 UNITS/ML, 10 ML VIAL (humuLIN R) SUBCUT PRN ×2 (11:42→12:11)
[2019-11-01 11:49] VITALS: BP_SYST 133
[2019-11-01 12:41] VITALS: BP_SYST 133
== END 2019-11-01 12:00 | DRG 871 ==
LOC: SED 14:14 → SIC 18:57 → STU 10-30 00:57
PROVIDERS: ADMIT Preventive Medicine Preventive Medicine/Occupational Environmental Medicine; ATTEND Internal Medicine Hospice and Palliative Medicine
DX: A41.9 Sepsis, unspecified organism (principal); J69.0 Pneumonitis due to inhalation of food and vomit; J96.20 Acute and chronic respiratory failure, unspecified whether with hypoxia or hypercapnia; K72.00 Acute and subacute hepatic failure without coma; J15.9 Unspecified bacterial pneumonia; I13.0 Hypertensive heart and chronic kidney disease with heart failure and stage 1 through stage 4 chronic kidney disease, or unspecified chronic kidney disease; M62.82 Rhabdomyolysis; E87.1 Hypo-osmolality and hyponatremia; E87.2 Acidosis; F11.20 Opioid dependence, uncomplicated; N17.9 Acute kidney failure, unspecified; J44.0 Chronic obstructive pulmonary disease with (acute) lower respiratory infection; G93.1 Anoxic brain damage, not elsewhere classified; Z68.41 Body mass index [BMI] 40.0-44.9, adult; N18.9 Chronic kidney disease, unspecified; D64.9 Anemia, unspecified; E03.9 Hypothyroidism, unspecified; E11.22 Type 2 diabetes mellitus with diabetic chronic kidney disease; E11.65 Type 2 diabetes mellitus with hyperglycemia; E66.01 Morbid (severe) obesity due to excess calories; E83.39 Other disorders of phosphorus metabolism; E83.51 Hypocalcemia; I50.9 Heart failure, unspecified; E87.5 Hyperkalemia; E87.6 Hypokalemia; T38.0X5A Adverse effect of glucocorticoids and synthetic analogues, initial encounter; Y95 Nosocomial condition; M19.90 Unspecified osteoarthritis, unspecified site; E88.09 Other disorders of plasma-protein metabolism, not elsewhere classified; G47.33 Obstructive sleep apnea (adult) (pediatric); G89.4 Chronic pain syndrome; N40.0 Benign prostatic hyperplasia without lower urinary tract symptoms; Z91.19 Patient's noncompliance with other medical treatment and regimen; Z87.891 Personal history of nicotine dependence; Y92.89 Other specified places as the place of occurrence of the external cause; Z88.8 Allergy status to other drugs, medicaments and biological substances; Z79.899 Other long term (current) drug therapy
CPT/HCPCS: 36415; 36600; 70450-TC; 71045; 80048; 80053; 80307; 81000-TC; 82140-TC; 82150-TC; 82550-TC; 82553-TC; 82803-TC; 82962; 83605; 83690-TC; 83735-TC; 83880; 84100-TC; 84484; 85007; 85025; 85027; 85610-TC; 85651-TC; 85730-TC; 86140; 86713; 86738; 87040-TC; 87081; 87086; 93005; 94640; 94660; 94760; 96361; 96365; 96366; 96375; 99285; G0378; G0481; G0482; J0456; J0610; J1030; J1815; J1956; J2060; J2270; J2310; J2405; J2543; J2930; J7030; J7050; J7060; J7512; J7620